=== PATIENT | female | born 1940 | race Caucasian/White ===

== ENCOUNTER → 2016-12-05 | Outpatient (CLI) | payer OTHER, MEDICARE ==
--- NOTE | ~2016-12-05 | EKG ---
[address] [address] ELECTROCARDIOGRAM REPORT Name: TAB ALVAREZ Room #: REG [facility] [place]#: [id number] Admission: 12/05/16 Attend Phys: Hien Sierra MD Discharge: Date of : 40 Report #: [id number] THIS REPORT FOR: //name// [facility] Test Date: 2016-12-05 Test Time: 10:20:45 Pat Name: TAB ALVAREZ Department: Room: Gender: F Tear Down Man: carolyn : 1940 Requested By: Hien Sierra Order Number: [id number] MD: Tenzin Deluca Measurements Intervals [place] Rate: 83 P: 103 [place]: 183 QRS: -24 QRSD: 93 T: 79 QT: 374 QTc: 440 Interpretive Statements Sinus rhythm Borderline left axis deviation No previous ECG available for comparison Electronically Signed On 12-05-2016 16:47:40 [employer] APPR[employer]ISER by Tenzin Deluca [email or web address] <ELECTRONICALLY SIGNED> By: Tenzin Deluca MD 12/05/16 1647 1020 1020 MD TIMMY Phan
== END ==
LOC: CV 08:22
DX: Z01.818 Encounter for other preprocedural examination (principal)

== ENCOUNTER 2018-02-23 13:24 | Emergency (ER) | payer OTHER, MEDICARE ==
[~2018-02-23] VITALS: Ht 157.5 cm; Wt 61.2 kg
--- NOTE | ~2018-02-23 | EKG ---
[place] [address] [facility] [place] [address] ELECTROCARDIOGRAM REPORT Name: TAB ALVAREZ [facility] [id number] Admission: 02/23/18 Attend Phys: Discharge: 02/23/18 Date of : 40 Report #: [id number] THIS REPORT FOR: //name// [facility] ED Test Date: 2018-02-23 Test Time: 15:01:50 Pat Name: TAB ALVAREZ Department: Room: Gender: F Transmitter Supervisor: RAYMON : 1940 Requested By: Julian Knight Order Number: [id number] MD: Vivek Gomes Measurements Intervals [place] Rate: 84 P: 94 [place]: 162 QRS: -28 QRSD: 83 T: 72 QT: 377 QTc: 446 Interpretive Statements Sinus rhythm Atrial premature complex Borderline left axis deviation Compared to ECG 12/05/2016 10:20:45 Atrial premature complex(es) now present Electronically Signed On 02-24-2018 9:44:50 CDT by Vivek Gomes [email or web address] <ELECTRONICALLY SIGNED> By: Vivek Gomes MD, [facility] 02/24/18 0944 1501 1501 Vivek Gomes MD, [facility] /EPI
[2018-02-23] MEDS ORDERED: PAROXETINE HCL30 MG PO (14:08)
[2018-02-23] MEDS ORDERED: BENTYL 10 MG CA10 M1 PO (14:08)
[2018-02-23] MEDS ORDERED: LEVOTHYROXINE112 MCG PO (14:08)
[2018-02-23] MEDS ORDERED: ATORVASTATIN CA40 MG PO (14:09)
[2018-02-23] MEDS ORDERED: PROTONIX40 M1 PO (14:09)
[2018-02-23] MEDS ORDERED: PROAIR RESPICL90 MCG INH (14:10)
[2018-02-23 14:59] VITALS: BP 111/80
[2018-02-23 15:21] LABS: ABSOLUTE NEUTROPHILS 5.7 thou/uL (1.4-8.2); BASOPHILS 0.7 % (0.0-2.0); EOSINOPHILS 1.5 % (0.0-3.0); HEMATOCRIT 41.7 % (37.0-47.0); LYMPHOCYTES 21.6 % (24.0-44.0); MCHC 33.4 g/dL (28.0-37.0); MCV 92.8 fL (80.0-100.0); MONOCYTES 7.7 % (1.0-8.0); PLATELET COUNT 351 thou/uL (150-400); POLYS 68.5 % (36.0-66.0); RDW 13.2 % (10.5-14.5); WBC 8.4 thou/uL (4.0-11.0)
[2018-02-23 15:29] LABS: URINE BILIRUBIN NEGATIVE (Negative); URINE BLOOD NEGATIVE (Negative); URINE CLARITY CLEAR; URINE COLOR YELLOW; URINE GLUCOSE-RANDOM* NEGATIVE (Negative); URINE KETONES NEGATIVE (Negative); URINE LEUKOCYTES-REFLEX NEGATIVE (Negative); URINE NITRITE-REFLEX NEGATIVE (Negative); URINE PROTEIN (DIPSTICK) NEGATIVE (Negative); URINE SPECIFIC GRAVITY <= 1.005 (1.005-1.035); URINE UROBILINOGEN 0.2 E.U./dl (0.2-1.0)
[2018-02-23 15:31] LABS: ANION GAP 7 mmol/L (7-16); BUN 21 mg/dL (7-18); CALCIUM 9.9 mg/dL (8.5-10.1); CHLORIDE 102 mmol/L (98-107); CO2 31 mmol/L (21-32); CREATININE 0.7 mg/dL (0.6-1.0); GLUCOSE 101 mg/dL (74-106); POTASSIUM 4.3 mmol/L (3.5-5.1); SODIUM 140 mmol/L (136-145)
[2018-02-23 15:39] LABS: ALBUMIN 3.6 g/dL (3.4-5.0); SGOT 38 U/L (15-37); SGPT 38 U/L (30-65); TOTAL BILIRUBIN 0.2 mg/dL (<0.1-1.0); TOTAL PROTEIN 7.4 g/dL (6.4-8.2); TROPONIN-I < 0.04 ng/mL (<0.06)
== END 2018-02-23 16:27 | disposition home or self-care (01) ==
LOC: ER 13:24
PROVIDERS: Emergency Medicine
DX: S01.01XA Laceration without foreign body of scalp, initial encounter (principal); E03.9 Hypothyroidism, unspecified; E78.00 Pure hypercholesterolemia, unspecified; K21.9 Gastro-esophageal reflux disease without esophagitis; J44.9 Chronic obstructive pulmonary disease, unspecified; Z87.891 Personal history of nicotine dependence; Z88.1 Allergy status to other antibiotic agents; Z88.2 Allergy status to sulfonamides; W19.XXXA Unspecified fall, initial encounter; Y93.89 Activity, other specified; Y92.89 Other specified places as the place of occurrence of the external cause; Y99.8 Other external cause status

== ENCOUNTER 2018-03-01 12:00 | Inpatient (IN) | payer OTHER, MEDICARE ==
[~2018-03-01] VITALS: Ht 157.5 cm; Wt 61.2 kg
--- NOTE | ~2018-03-01 | EKG ---
[place] [address] [place] [address] ELECTROCARDIOGRAM REPORT Name: TAB ALVAREZ [id number] Admission: 03/01/18 Attend Phys: Discharge: Date of : 40 Report #: [id number] THIS REPORT FOR: //name// [facility] ED Test Date: 2018-03-01 Test Time: 12:45:59 Pat Name: TAB ALVAREZ Department: Room: Gender: F Order Clerk: MADHURI : 1940 Requested By: Anabell Peña Order Number: [id number] MD: Vivek Gomes Measurements Intervals [place] Rate: 78 P: 84 [place]: 174 QRS: -8 QRSD: 83 T: 76 QT: 390 QTc: 445 Interpretive Statements Sinus rhythm No significant abnormality Compared to ECG 02/23/2018 15:01:50 Atrial premature complex(es) no longer present Electronically Signed On 03-01-2018 13:08:30 CDT by Vivek Gomes [email or web address] <ELECTRONICALLY SIGNED> By: Vivek Gomes MD, [facility] 03/01/18 1308 1245 1245 Vivek Gomes MD, FACC /EPI
--- NOTE | ~2018-03-01 | HC ---
[facility] [place] [address] CONSULTATION Name: TAB ALVAREZ Room #: 464-P [facility] IN M.R.#: [id number] Admission: 03/01/18 Attend Phys: Lencho Najera MD Discharge: 03/04/18 Date of : 40 Report #: [id number] THIS REPORT FOR: //name// CC: Dimitri Najera REASON FOR CONSULTATION: History of syncope. HISTORY OF PRESENT ILLNESS: The patient is a 77-year-old woman with a syncopal episode a little over a week ago. This was associated with a scalp laceration requiring stitches. She was seen in the office last week where an outpatient event recorder was placed. Over the weekend she had increasing nasal congestion and breathlessness. She denies recurrent near syncope or syncope. She denies chest heaviness or pressure. I was asked to see her in light of this prior syncopal spell. There is no history of palpitations. ALLERGIES: INCLUDE AMOXICILLIN, CIPRO, CLINDAMYCIN, BACTRIM. MEDICATIONS: Include Bentyl, levothyroxine 112 mcg daily, paroxetine 30 mg daily, atorvastatin 40 mg daily, Protonix 40 mg daily and albuterol. PAST MEDICAL HISTORY: Medical records have been reviewed and include a history of hypothyroidism, dyslipidemia, reflux disease, chronic obstructive pulmonary disease. SOCIAL HISTORY: She is a nonsmoker. She is a retired obstetrics nurse. FAMILY HISTORY: Unremarkable for premature coronary artery disease or cardiomyopathy. REVIEW OF SYSTEMS: All systems negative except as that noted above. PHYSICAL EXAMINATION: GENERAL: A pleasant woman, in no distress. VITAL SIGNS: Blood pressure is 126/80, heart rate of 86 and regular, she is afebrile, 5 feet 2 inches tall, 135 pounds. HEENT: There is neither xanthelasma, subcutaneous xanthomata, oral mucosal or digital cyanosis or kyphoscoliosis present. CHEST: Clear to auscultation and percussion. CARDIAC: Regular rate and rhythm with normal S1, S2. No murmurs or rubs. ABDOMEN: Soft and nontender. EXTREMITIES: Without cyanosis or clubbing. Radial pulses are 2+. NEUROLOGIC: She is alert with a nonfocal exam. LABORATORY DATA: Sodium 137, potassium 4.7, creatinine 0.7. Troponin of 0. White count 7.7, hemoglobin 13, hematocrit 39, and platelet count 281. CT of the head demonstrates parietal scalp laceration and small hematoma with no [facility] [address] [place] [address] CONSULTATION Name: TAB ALVAREZ Room #: 464-P [facility] IN [facility]#: [id number] Admission: 03/01/18 Attend Phys: Lencho Najera MD Discharge: 03/04/18 Date of : 40 Report #: [id number] intracranial process. EKG, sinus rhythm. IMPRESSION: 1. History of prior syncope without recurrence. 2. Pharangeal mass/adenopathy. RECOMMENDATIONS: Her outpatient court recording monitor has been reviewed. No rhythm abnormalities have been seen since placement of event recorder. She has had no symptoms since placement of the device. Continue outpatient monitor for 4 weeks. No additional therapy needed at this point. No driving for an event free interval. Thank you for asking me to participate in her care. <ELECTRONICALLY SIGNED> By: Vivek Gomes MD, [facility] 03/09/18 0817 0923 1234 Vivek Gomes MD, FACC /nt
--- NOTE | ~2018-03-01 | D ---
[facility] [place] [address] DISCHARGE SUMMARY Name: TAB ALVAREZ Room #: 464-P [facility] IN M.R.#: [id number] Admission: 03/01/18 Attend Phys: Lencho Najera MD Discharge: 03/04/18 Date of : 40 Report #: [id number] THIS REPORT FOR: //name// CC: Dimitri Najear FINAL DIAGNOSES: 1. Nasopharyngeal mass. 2. Syncope. 3. Hypertension. HOSPITAL COURSE: The patient was admitted after a syncopal spell. Dr. Gomes saw her in consultation, but no significant cardiac issue was identified as a source of her symptoms. However, through various imaging, she was found to have nasopharyngeal mass. Please see the separately dictated CT and MRI reports. Dr. Torres had bad been working with her as an outpatient and assessed her. Ultimately, a right-sided cervical lymph node biopsy was obtained. Pathology was still pending. The plan is to follow up on the pathology results and if negative, Dr. Torres will perform an outpatient nasopharyngeal biopsy. PHYSICAL EXAMINATION: On the day of discharge: GENERAL: She was awake and alert. VITAL SIGNS: Stable. LUNGS: Clear. HEART: Regular. ABDOMEN: Soft, normoactive bowel sounds. EXTREMITIES: No edema. She has a healing laceration in the back of the left scalp. DISPOSITION: To be discharged to home with diet and activity as tolerated. Follow up with me in 2 weeks, although will be in contact. Based on further study results, she will resume all usual home medications. Follow up with Dr. Torres and Dr. Gomes as directed. <ELECTRONICALLY SIGNED> By: Dimitri Hanson MD 03/05/18 0908 1225 1246 Dimitri Hanson MD /nt
--- NOTE | ~2018-03-01 | 2DMMODE ---
[facility] [address] [place] [address] 2 D/M-MODE ECHOCARDIOGRAM Name: KIMTAB PHAN Room #: 464-P ADM IN M.R.#: [id number] Admission: 03/01/18 Attend Phys: Tomasz Boland Discharge: Date of : 40 Date of Service: 03/02/18 0942 Report #: [id number] THIS REPORT FOR: //name// APPROVED REPORT Study performed: 03/02/2018 08:22:04 EXAM: Comprehensive 2D, Doppler, and color-flow Echocardiogram Patient Location: Echo lab Room #: 464 Status: routine BSA: 1.62 HR: 67 bpm BP: 126/81 mmHg Rhythm: NSR Other Information Study Quality: Adequate Indications Syncope. Hx: CAD, stent, COPD, HLD 2D Dimensions RVDd: 30.57 mm LVEF(%): 61.20 (>50%) IVSd: 10.88 (7-11mm) LVOT Diam: 19.61 (18-24mm) LVDd: 38.75 mm PWd: 8.95 (7-11mm) Ascending Ao: 30.86 (22-36mm) LVDs: 26.24 (25-40mm) Aortic Root: 35.11 mm Razo's LVEF: 61.20 % Volumes Left Atrial Volume (Systole) Single Plane 4CH: 20.07 mL Single Plane 2CH: 24.68 mL LA ESV Index: 15.00 mL/m2 Aortic Valve AoV Peak Kevin.: 1.45 m/s AO Peak Gr.: 8.45 mmHg LVOT Max P.61 mmHg LVOT Max V: 1.18 m/s BETTY Vmax: 2.46 cm2 Mitral Valve E/A Ratio: 0.8 MV Decel. Time: 199.98 ms [facility] [place] [address] 2 D/M-MODE ECHOCARDIOGRAM Name: TAB ALVAREZ Room #: 464-P [facility] IN M.R.#: [id number] Admission: 03/01/18 Attend Phys: Tomasz Boland Discharge: Date of : 40 Date of Service: 03/02/18 0942 Report #: [id number] MV E Max Kevin.: 0.80 m/s MV A Kevin.: 0.96 m/s MV PHT: 57.99 ms IVRT: 72.66 ms Pulmonary Valve PV Peak Kevin.: 1.00 m/s PV Peak Gr.: 4.03 mmHg Pulmonary Vein P Vein S: 0.62 m/s P Vein D: 0.51 m/s P Vein S/D Ratio: 1.22 Tricuspid Valve TR Peak Kevin.: 3.10 m/s RAP Estimate: 5.00 mmHg TR Peak Gr.: 38.47 mmHg PA Pressure: 44.00 mmHg Left Ventricle The left ventricle is normal size. There is normal LV segmental wall motion. There is normal left ventricular wall thickness. Left ventricular systolic function is normal. LVEF is 55-60%. Mild diastolic dysfunction is present (impaired relaxation pattern). Right Ventricle The right ventricle is normal size. The right ventricular systolic function is normal. Atria The left atrium size is normal. The right atrium size is normal. Aortic Valve The aortic valve is sclerotic. Mild aortic regurgitation. There is no aortic valvular stenosis. Mitral Valve The mitral valve is normal in structure. Mild mitral regurgitation. Tricuspid Valve The tricuspid valve is normal in structure. Mild tricuspid regurgitation. Estimated PAP is 45mmHg. Pulmonic Valve [place] [id number] 2 D/M-MODE ECHOCARDIOGRAM Name: TAB ALVAREZ Room #: 464-P ADM IN M.R.#: [id number] Admission: 03/01/18 Attend Phys: Tomasz Boland Discharge: Date of : 40 Date of Service: 03/02/18 0942 Report #: [id number] The pulmonary valve is normal in structure. Trace pulmonic regurgitation. Great Vessels The aortic root is normal in size. The ascending aorta is normal in size. IVC is normal in size and collapses >50% with inspiration. Pericardium There is no pericardial effusion. <Conclusion> Left ventricular systolic function is normal. There is normal LV segmental wall motion. LVEF 55-60%. Mild diastolic dysfunction The aortic valve is sclerotic. Mild aortic regurgitation, no stenosis. The mitral valve is normal in structure. Mild mitral regurgitation. Mild tricuspid regurgitation. Estimated pulmonary artery pressure of 45mmHg. There is no pericardial effusion. <ELECTRONICALLY SIGNED> By: Vivek Gomes MD, FACC 03/02/18941 1 1 Vivek Gomes MD, FACC /INF
--- NOTE | ~2018-03-01 | CNG ---
[facility] [place] [address] [place] [address] CYTO-NONGYN REPORT PROCEDURE Name: CARMEN ALVAREZ Room #: 464-P ADM IN M.R.#: [id number] Admission: 03/01/18 Date of : 40 Discharge: Report #: [id number] Path Case #: [id number] CYTOPATHOLOGY REPORT COLLECTION DATE: 03/03/2018 RECEIVED DATE: 03/03/2018 SUBMITTING PHYS: Dr. Joseph Torres Jr. OTHER PHYS: Dr. Lencho Hanson CLINICAL HISTORY: Right neck mass 2.5 x 2.4, syncope, falls, minor head injury, back pain SPECIMEN(S) RECEIVED: A.Fine needle aspiration, Right neck mass * * * * * * * * * * * * FINAL DIAGNOSIS: A. Fine needle aspiration, Right neck mass: SUSPICIOUS FOR MALIGNANCY. Highly atypical cells present suspicious for malignancy. COMMENT: Cytomorphological examination of the Diff-Quik and PAP stained slides show abundant background necrotic debris. Markedly atypical cells are present that are highly suspicious for malignancy. The Thin-Prep and cell block are paucicellular and additional staining is unable to be performed. The case is co-reviewed with Dr. Zuleyma Cid. Clinical and radiographic correlation is required. PATHOLOGIST: Love Pang M.D. REPORT ELECTRONICALLY SIGNED BY: Love Pang M.D. DATE/TIME: 03/04/2018 14:44 * * * * * * * * * * * * GROSS PATHOLOGY: A. Fine needle aspiration, Right neck mass: The specimen is labeled "Carmen Alvarez" and consists of three fixed slides and three air dried slides. Thirty mL of clear pink fluid in fixative from the needle rinse is also submitted and one ThinPrep slide and an alcohol fixed cell block were prepared from this material. (lg03.03.2018) FIELD SERVICE ENGINEER(S): EDNA Escobedo(ASCP) INITIAL CPT CODE(S): A; 34377, 49164 Professional services performed by [facility] [address] [place] [address] CYTO-NONGYN REPORT PROCEDURE Name: CARMEN ALVAREZ Room #: 464-P ADM IN M.R.#: [id number] Admission: 03/01/18 Date of : 40 Discharge: Report #: [id number] Path Case #: [id number] [address] Technical services performed by [facility] at [address] [place] [address], [address], [place] [address]. [address] [place] [address] PHONE: [phone] DIRECTOR: Dylan Peterson M.D. * * * END OF REPORT * * *
--- NOTE | ~2018-03-01 | HC ---
[facility] [place] [address] CONSULTATION Name: TAB ALVAREZ Room #: 464-P ADM IN M.R.#: [id number] Admission: 03/01/18 Attend Phys: Lencho Najera MD Discharge: Date of : 40 Report #: [id number] THIS REPORT FOR: //name// CC: Dimitri Najera DATE OF SERVICE: 03/02/2018 REASON FOR CONSULTATION: Nasal congestion with palatal mass. HISTORY OF PRESENT ILLNESS: The patient is a 77-year-old female who has been admitted for syncope. She had a fall last week where she hit the ground and does not remember anything and came up with blood on the backside of her head and received stitches last week. She was seen in the Emergency Room and denied admission after being recommended admission to the hospital for syncope. She had another fall yesterday and now agreed to admission to the hospital. She has had some social issues and difficulty getting around places Emergency Room, also requested for further care for her nasal congestion. She has seen Dr. Torres in the past about 3 weeks ago, had a tube placed in her right ear and had a CT scan of her sinuses. She says that it showed her the results, but she does not remember them and does not remember having a plan suggested. She did start Dymista, thinks it might have been minimally helpful. She continues to have significant congestion. She has had ultrasound of her carotids, results of which showed a thyroid mass. 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 The Emergency Room physician yesterday noticed a mass present within her white soft palate. I have asked to evaluate her for her congestion, which she complains about and the palatal mass that was noticed on physical exam yesterday. Her other past medical history as listed in the MAR. She does have a cardiac specialist in place per Dr. Gomes, see the MAR for her list of current medications. She was on Dymista, has not restarted it in the hospital. REVIEW OF SYSTEMS: Significant for nasal congestion. She would like to have the sutures removed from the back. PHYSICAL EXAMINATION: She is a well-developed female who is in no apparent distress. She is resting comfortably upright in bed, getting ready to go down for an EKG. She has a laceration that is healing on the posterior aspect of her scalp on the left as well as sutures within it. The right ear has a tube present. No active otorrhea. Left ear is normal. Nasal, significant congestion. She has difficulty breathing air through her nose. Oral cavity: She has a right palatal mass which appears to be 3 cm in size. No other granulation or ulceration present in oral cavity. Neck: She is tender in the neck bilaterally. She does have some adenopathy present in her neck as well. IMPRESSION: Right palatal mass with cervical adenopathy with nasal congestion [address] [address] CONSULTATION Name: TAB ALVAREZ Room #: 464-P ADM IN M.R.#: [id number] Admission: 03/01/18 Attend Phys: Lencho Najera MD Discharge: Date of : 40 Report #: [id number] and potential obstruction. PLAN: I have recommended that she obtain a CT scan of her neck to evaluate the palatal mass and her cervical adenopathy. I will be going as of this morning and one of my partners will follow up with the CT scan result after it is complete. By: 0826 0910 Callum Ragland MD /fabiola
--- NOTE | ~2018-03-01 | H ---
[facility] [place] [address] HISTORY AND PHYSICAL Name: TAB ALVAREZ Room #: 464-P ADM IN M.R.#: [id number] Admission: 03/01/18 Attend Phys: Lencho Najera MD Discharge: Date of : 40 Report #: [id number] THIS REPORT FOR: //name// CC: Dimitri Najera DATE OF SERVICE: 03/01/2018 CHIEF COMPLAINT: Syncope. HISTORY OF PRESENT ILLNESS: The patient is a 77-year-old female who had a passing out spell at home and fell about a week ago with a small laceration in the back of her head. In the intervening time, she had a routine visit with her ENT, and a CT of the sinuses revealed a deviated septum, and she had a minor ear procedure. However, she had another fall with what she thinks is syncopal episode the other day and presented to the Emergency Room. PAST MEDICAL HISTORY: Hypothyroidism, depression, hypertension, dyslipidemia, asthma, irritable bowel syndrome. PAST SURGICAL HISTORY: Noncontributory. FAMILY HISTORY: Noncontributory. SOCIAL HISTORY: Remote tobacco history, none currently. ALLERGIES: AMOXICILLIN, CIPRO, CLINDAMYCIN, SULFA, TRIMETHOPRIM. MEDICATIONS: Dicyclomine, Levoxyl, Paxil, Lipitor, Protonix, albuterol. REVIEW OF SYSTEMS: She denies headache, chest pain, shortness of breath, abdominal pain, nausea, vomiting, diarrhea, constipation, dysuria. OBJECTIVE: VITAL SIGNS: Temperature 36.3, pulse 86, respirations 20, blood pressure O2 sat 96% on room air. GENERAL: She is awake and alert, in no distress. HEAD AND NECK: Unremarkable. There may be some fullness in the base of the neck. LUNGS: Clear. HEART: Regular. ABDOMEN: Soft, normoactive bowel sounds. EXTREMITIES: No edema. NEUROLOGIC: Motor strength 5/5 throughout. She is oriented to place, knows me and situation. [facility] [address] [place] [address] HISTORY AND PHYSICAL Name: TAB ALVAREZ Room #: 464 ADM IN M.R.#: [id number] Admission: 03/01/18 Attend Phys: Lencho Najera MD Discharge: Date of : 40 Report #: [id number] LABORATORY DATA: Reviewed. CT of the neck shows bilateral masses near the base of the skull, suggesting adenopathy, with what also looks to be a right deep cervical node and emphysema changes of the lungs. ASSESSMENT: 1. Syncope. 2. Head and neck mass, unclear etiology. 3. Lymphadenopathy. 4. Chronic obstructive pulmonary disease. PLAN: She is under cardiac monitoring, and Dr. Gomes had already placed an event monitor on her. I will ask for a CT of the chest, abdomen and pelvis as well to try to get better understanding of this lymphadenopathy and the areas at the base of the skull. <ELECTRONICALLY SIGNED> By: Dimitri Hanson MD 03/02/18 1339 1254 1333 Dimitri Hanson MD /nt
[~2018-03-01 12:00] MED LIST: ATORVASTATIN CA40 MG PO; BENTYL 10 MG CA10 M1 PO; LEVOTHYROXINE112 MCG PO; PAROXETINE HCL30 MG PO; PROAIR RESPICL90 MCG INH; PROTONIX40 M1 PO
[2018-03-01 12:48] VITALS: BP 152/99
[2018-03-01 13:30] LABS: ABSOLUTE NEUTROPHILS 5.1 thou/uL (1.4-8.2); BASOPHILS 0.9 % (0.0-2.0); EOSINOPHILS 0.7 % (0.0-3.0); HEMATOCRIT 39.7 % (37.0-47.0); HEMOGLOBIN 13.2 gm/dL (12.0-15.0); MCH 30.8 pg (26.0-34.0); MCHC 33.2 g/dL (28.0-37.0); MCV 92.7 fL (80.0-100.0); MONOCYTES 9.6 % (1.0-8.0); PLATELET COUNT 281 thou/uL (150-400); POLYS 66.8 % (36.0-66.0); RBC 4.29 mil/uL (4.20-5.00); RDW 13.4 % (10.5-14.5); WBC 7.7 thou/uL (4.0-11.0)
[2018-03-01 13:38] LABS: ANION GAP 6 mmol/L (7-16); BUN 17 mg/dL (7-18); CALCIUM 9.2 mg/dL (8.5-10.1); CHLORIDE 102 mmol/L (98-107); CO2 29 mmol/L (21-32); CREATININE 0.7 mg/dL (0.6-1.0); GLUCOSE 104 mg/dL (74-106); POTASSIUM 4.7 mmol/L (3.5-5.1); SODIUM 137 mmol/L (136-145)
[2018-03-01 13:46] LABS: LIPASE 188 U/L (73-393); TROPONIN-I < 0.04 ng/mL (<0.06)
[2018-03-01 14:23] VITALS: BP 132/78
[2018-03-01 15:59] VITALS: BP 130/65
[2018-03-01 17:37] VITALS: BP 135/76
[2018-03-01] MEDS ORDERED: ATORVASTATIN CA40 MG PO (18:18)
[2018-03-01] MEDS ORDERED: CALCIUM 600 +1 EAC1 PO (18:20)
[2018-03-01] MEDS ORDERED: VITAMINC500 PO (18:20)
[2018-03-01] MEDS ORDERED: PROBIOTIC1 EAC1 PO (18:21)
[2018-03-01 20:02] VITALS: BP 147/73
[2018-03-02 05:21] VITALS: BP 118/58
[2018-03-02 07:07] VITALS: BP 126/81
[2018-03-02 16:09] VITALS: BP 124/70
[2018-03-02 20:21] VITALS: BP 130/71
[2018-03-03 04:48] VITALS: BP 150/77
[2018-03-03 06:03] VITALS: BP 138/91
[2018-03-03 16:00] VITALS: BP 127/75
[2018-03-03 19:35] VITALS: BP 104/51
[2018-03-04 05:11] VITALS: BP 124/69
[2018-03-04 06:44] LABS: CALCIUM 9.3 mg/dL (8.5-10.1); CREATININE 0.8 mg/dL (0.6-1.0); POTASSIUM 4.4 mmol/L (3.5-5.1)
[2018-03-04 08:10] VITALS: BP 131/57
[2018-03-04 16:32] VITALS: BP 131/57
== END 2018-03-04 18:45 | disposition home or self-care (01) | DRG 156 ==
LOC: ER 12:00 → EROBS 14:04 → 4W 14:04 → ENTRNSPT 03-04 17:40 → 4W 03-04 18:45
PROVIDERS: Emergency Medicine; Internal Medicine Geriatric Medicine
PROC: B24BZZ4 Ultrasonography of Heart with Aorta, Transesophageal (ICD-10-PCS; principal; 2018-03-02)
PROC: 0HB4XZX Excision of Neck Skin, External Approach, Diagnostic (ICD-10-PCS; 2018-03-03)
DX: J39.2 Other diseases of pharynx (principal); R55 Syncope and collapse; R59.1 Generalized enlarged lymph nodes; F32.9 Major depressive disorder, single episode, unspecified; E78.00 Pure hypercholesterolemia, unspecified; R09.81 Nasal congestion; J44.9 Chronic obstructive pulmonary disease, unspecified; K58.9 Irritable bowel syndrome, unspecified; E03.9 Hypothyroidism, unspecified; K21.9 Gastro-esophageal reflux disease without esophagitis; Z87.891 Personal history of nicotine dependence; Z79.899 Other long term (current) drug therapy; Z88.1 Allergy status to other antibiotic agents; Z88.2 Allergy status to sulfonamides; Z88.8 Allergy status to other drugs, medicaments and biological substances
CPT/HCPCS: 10045

== ENCOUNTER → 2018-03-06 | Outpatient (CLI) | payer OTHER, MEDICARE ==
[~2018-03-06] MED LIST changes: +CALCIUM 600 +1 EAC1 PO; +PROBIOTIC1 EAC1 PO; +VITAMINC500 PO
== END ==
LOC: RAD 15:14
DX: M47.894 Other spondylosis, thoracic region (principal); M51.34 Other intervertebral disc degeneration, thoracic region; I25.10 Atherosclerotic heart disease of native coronary artery without angina pectoris; E78.5 Hyperlipidemia, unspecified; E03.9 Hypothyroidism, unspecified

== ENCOUNTER 2018-03-15 06:01 | Emergency (ER) | payer OTHER, MEDICARE ==
[~2018-03-15] VITALS: Ht 157.5 cm; Wt 60.8 kg
[2018-03-15] MEDS ORDERED: LIDODERM1 EACH TOP (06:45)
[2018-03-15] MEDS ORDERED: METHOCARBAMOL500 M1 PO (06:45)
== END 2018-03-15 07:14 | disposition home or self-care (01) ==
LOC: ER 06:01
DX: M54.6 Pain in thoracic spine (principal); G89.29 Other chronic pain; F32.9 Major depressive disorder, single episode, unspecified; E78.00 Pure hypercholesterolemia, unspecified; K21.9 Gastro-esophageal reflux disease without esophagitis; J44.9 Chronic obstructive pulmonary disease, unspecified; Z87.442 Personal history of urinary calculi; Z90.49 Acquired absence of other specified parts of digestive tract; Z88.1 Allergy status to other antibiotic agents; Z88.2 Allergy status to sulfonamides; Z87.891 Personal history of nicotine dependence

== ENCOUNTER → 2018-05-06 | Outpatient (CLI) | payer OTHER, MEDICARE ==
[~2018-05-06] MED LIST changes: +ADULT ASPIRIN81 MG PO; +LIDODERM1 EACH TOP; +LOPERAMIDE 2 MG2 M1 PO; +MAGIC MOUTHWASH SWISH&SPIT; +MELATIN3 MG PO; +METHOCARBAMOL500 M1 PO; +TYLENOL EXTRA500 MG PO
[2018-05-06 12:20] VITALS: BP 164/81
[2018-05-06 12:45] VITALS: BP 164/81
== END ==
LOC: OPONC 09:00
DX: C11.9 Malignant neoplasm of nasopharynx, unspecified (principal)
CPT/HCPCS: 27000